=== PATIENT | female | born 1980 | race Caucasian/White ===

== ENCOUNTER → 2021-01-05 07:22 | Outpatient (CLI) | payer OTHER, SELFPAY ==
[2021-01-05 08:03] LABS: Hematocrit 39.9 % (36-46); Hemoglobin 13.3 g/dL (12.0-16.0); Mean Corpuscular HGB Conc 33.3 % (30-36); Mean Corpuscular Volume 93.2 fL (80-100); Platelet Count 384 X10^3/uL (150-400); Red Blood Cell Count 4.28 X10^6/uL (4.0-5.2); Red Cell Distribution Width 12.6 % (11.6-14.8); White Blood Cell Count 7.8 X10^3/uL (4.5-11.0)
[2021-01-05 08:17] LABS: Alanine Aminotransferase 16 IU/L (<35); Albumin 4.3 g/dL (3.5-5.0); Albumin Globulin Ratio 1.5 (1.0-2.8); Alkaline Phosphatase 41 U/L (38-126); Aspartate Aminotransferase 26 IU/L (14-36); BUN Creatinine Ratio 18.4 (6-22); Bilirubin Total 0.4 mg/dL (0.2-1.3); Blood Urea Nitrogen 14 mg/dL (7-17); Calcium 9.2 mg/dL (8.4-10.2); Carbon Dioxide 24 mmol/L (22-32); Chloride 104 mmol/L (98-107); Cholesterol 185 mg/dL (140-199); Estimated Glomerular Filt Rate > 60.0 mL/min (>60); Globulin 2.8 g/dL (1.7-4.1); Glucose 90 mg/dL (70-100); HDL Cholesterol 54 mg/dL (40-60); HEMOLYSIS < 15 (0-50); LDL Cholesterol Calculated 118 mg/dL (<100); Sodium 137 mmol/L (137-145); Total Protein 7.1 g/dL (6.3-8.2); Triglycerides 63 mg/dL (35-150)
[2021-01-05 09:17] LABS: TSH w/ Reflex to FT4 0.83 uIU/mL (0.47-4.68)
== END ==
PROVIDERS: PCP Registered Nurse Diabetes Educator; Referring Provider Registered Nurse Diabetes Educator; Visit Provider Registered Nurse Diabetes Educator
DX: Z00.00 Encounter for general adult medical examination without abnormal findings (principal)
CPT/HCPCS: 36415; 80053; 80061; 84443; 85027

== ENCOUNTER → 2022-02-22 16:41 | Outpatient (CLI) | payer OTHER, SELFPAY ==
[2022-02-22 18:48] LABS: HCG Quantitative /Beta subunit 66433 mIU/mL
== END ==
PROVIDERS: PCP Registered Nurse Diabetes Educator; Referring Provider Registered Nurse Diabetes Educator; Visit Provider Registered Nurse Diabetes Educator
DX: Z32.00 Encounter for pregnancy test, result unknown (principal)
CPT/HCPCS: 36415; 84702

== ENCOUNTER → 2022-03-03 15:37 | Outpatient (CLI) | payer OTHER, SELFPAY ==
--- NOTE | 2022-03-03 15:40 | DI.US.S_ITS ---
PROCEDURE: US OB <= 14 WEEKS FETUS INDICATIONS: DATES OUTSIDE/PRIOR DATING DATA: Last menstrual period (LMP): December 10, 2021. LMP-based estimated date of delivery (ALMA): September 16, 2022. First dating scan (date and location): March 03, 2022. Estimated date of delivery (ALMA) from first dating scan: September 14, 2022 TECHNIQUE: Real-time scanning was performed of the fetus and maternal pelvic organs, with image documentation. Endovaginal scanning was also performed to better visualize the fetus and maternal ovaries. COMPARISON: None. FINDINGS: Embryo: Single living intrauterine gestation is identified measuring approximately 12 weeks and 1 day. No perigestational hemorrhage. Biparietal diameter: 1.4 cm, 12 weeks 0 days Head circumference: 6.0 cm, 12 weeks and 2 days Abdominal circumference: 5.2 cm, 12 weeks and 1 day Heart rate: 163 beats per minute Maternal organs: Ovaries were not visualized. IMPRESSION: Single living intrauterine gestation with estimated sonographic gestational age of approximately 12 weeks and 1 day. Estimated dated delivery is approximately September 14, 2022. This is concordant with estimated dated delivery based off last menstrual period of approximately September 16, 2022. Recommend routine second trimester anatomic screening survey. We strive to produce accurate, complete, and clear reports of imaging services. To assist us in improving patient care, this report was composed using standard report templates and voice recognition software. Therefore, it may contain abnormal punctuation, insertions and/or omissions. Occasional wrong-word or sound-alike substitutions may occur. Though we review the report and make efforts to correct it, we do recommend that the report be read carefully in proper context to recognize any text inaccuracies. Dictated by: eFderico Lemus M.D. on 03/04/2022 at 17:07 Approved by: Federico Lemus M.D. on 03/04/2022 at 17:12
== END ==
PROVIDERS: PCP Registered Nurse Diabetes Educator; Referring Provider Obstetrics & Gynecology; Visit Provider Obstetrics & Gynecology
DX: Z34.01 Encounter for supervision of normal first pregnancy, first trimester (principal); Z3A.12 12 weeks gestation of pregnancy
CPT/HCPCS: 76801; 76817

== ENCOUNTER → 2022-03-09 14:43 | Outpatient (CLI) | payer OTHER, SELFPAY ==
[2022-03-09 14:56] LABS: Miscellaneous to LabCorp NATERA KIT
[2022-03-09 15:29] LABS: Add Manual Diff / Slide Review NO; Basophils Absolute Auto 0 /uL (0-100); Basophils Percent Auto 0.3 % (0-2); Eosinophils Absolute Auto 100 /uL (0-450); Eosinophils Percent Auto 1.1 % (2-4); Hematocrit 37.6 % (36-46); Hemoglobin 12.8 g/dL (12.0-16.0); Lymphocytes Absolute Auto 1500 /uL (1100-4500); Lymphocytes Percent Auto 13.7 % (25-40); Mean Corpuscular HGB Conc 34.2 % (30-36); Mean Corpuscular Hemoglobin 30.9 PG (26-34); Mean Corpuscular Volume 90.5 fL (80-100); Monocytes Absolute Auto 900 /uL (0-900); Neutrophils Absolute Auto 8200 /uL (1500-7000); Neutrophils Percent Auto 76.9 % (50-75); Platelet Count 395 X10^3/uL (150-400); Red Blood Cell Count 4.15 X10^6/uL (4.0-5.2); Red Cell Distribution Width 12.9 % (11.6-14.8); White Blood Cell Count 10.7 X10^3/uL (4.5-11.0)
[2022-03-09 15:57] LABS: Free T4, Direct Thyroxine 1.52 ng/dL (0.78-2.19)
[2022-03-09 16:11] LABS: Thyroid Stimulating Hormone 3.09 uIU/mL (0.47-4.68)
[2022-03-09 19:38] LABS: Appearance Urine UA CLEAR; Bilirubin Urine UA NEGATIVE (NEGATIVE); Color Urine UA YELLOW; Glucose Urine UA NEGATIVE (Negative); Ketones Urine UA NEGATIVE (NEGATIVE); Leukocyte Esterase Urine UA TRACE (NEGATIVE); Nitrite Urine UA NEGATIVE (Negative); Occult Blood Urine UA TRACE-LYSED (Negative); Protein Urine UA NEGATIVE (Negative); Specific Gravity Urine UA 1.015 (1.000-1.035); Urobilinogen Urine UA 0.2 E.U./dL (0.2)
[2022-03-09 19:46] LABS: pH Urine UA 5.5 (4.5-8.0)
[2022-03-09 19:48] LABS: Amorphous Sediment Urine 1+; Bacteria Urine Few (2-10); RBC Urine 0-1/HPF (0-5/HPF); Squamous Epithelial Cell Urine 1-5 /HPF (0-5/HPF); WBC Urine 5-10/HPF (0-5/HPF)
[2022-03-09 21:30] LABS: Culture Indicated Urine Specimen Cultured
[2022-03-10 06:18] LABS: Varicella IgG Antibody 3921 index (Immune >165)
[2022-03-10 07:09] LABS: RPR Screen Non Reactive (Non Reactive)
[2022-03-10 16:16] LABS: Hepatitis B Surface Antigen NEGATIVE s/c (NEGATIVE); Rubella Antibody IgG 64.5 IU/mL (>15)
[2022-03-10 16:27] LABS: HIV 1 & 2 Ab/Ag 4th Gen Combo NEGATIVE (NEGATIVE); Hep C Virus Ab w/Reflex Quant NEGATIVE s/c (NEGATIVE)
== END ==
PROVIDERS: Obstetrics & Gynecology; PCP Registered Nurse Diabetes Educator; Referring Provider Obstetrics & Gynecology; Visit Provider Obstetrics & Gynecology
DX: O09.511 Supervision of elderly primigravida, first trimester (principal)
CPT/HCPCS: 36415; 80055; 81003; 81015; 84439; 84443; 86787; 86803; 86850; 86900; 86901; 87086; 87389; 87491; 87591

== ENCOUNTER 2022-03-24 21:45 | Emergency (ER) | payer OTHER, SELFPAY ==
[2022-03-24 21:54] VITALS: BP 146/81; PULSE 79; RESP 18; TEMP 36.6; O2SAT 98
--- NOTE | 2022-03-24 22:09 | DI.US.S_ITS ---
PROCEDURE: US OB LIMITED INDICATIONS: BLEEDING OUTSIDE/PRIOR DATING DATA: Last menstrual period (LMP): 12/10/2021 LMP-based estimated date of delivery (ALMA): 09/16/2022. First dating scan (date and location): 05/12/2022. Estimated date of delivery (ALMA) from first dating scan: 09/14/2022. The calculations are made using the LMP ALMA of 09/16/2022. TECHNIQUE: Real-time scanning was performed of the fetus, with image documentation and biometric measurements. COMPARISON: None. FINDINGS: General: A single living intrauterine gestation is present. Presentation: There below. Placenta: Placental position is anterior, without previa. Amniotic fluid: Appears subjectively within normal limits. heart rate: 153 beats per minute. Maternal cervical canal: Appears closed. biometrics: Biparietal diameter: 2.6 cm, 14 weeks 4 days Head circumference: 9.7 cm, 14 weeks 3 days Abdominal circumference: 8.1 cm, 15 weeks 3 8 Femur length: 6.2 cm, 13 weeks 5 days IMPRESSION: 1. Single living intrauterine demonstrating appropriate interval growth with estimated weight of 14 weeks 2 days. We strive to produce accurate, complete, and clear reports of imaging services. To assist us in improving patient care, this report was composed using standard report templates and voice recognition software. Therefore, it may contain abnormal punctuation, insertions and/or omissions. Occasional wrong-word or sound-alike substitutions may occur. Though we review the report and make efforts to correct it, we do recommend that the report be read carefully in proper context to recognize any text inaccuracies. Dictated by: Anibal Beavers M.D. on 03/25/2022 at 0:20 Approved by: Anibal Beavers M.D. on 03/25/2022 at 0:26
[2022-03-24 22:39] LABS: Add Manual Diff / Slide Review NO; Basophils Absolute Auto 100 /uL (0-100); Basophils Percent Auto 0.5 % (0-2); Eosinophils Absolute Auto 200 /uL (0-450); Eosinophils Percent Auto 1.5 % (2-4); Hematocrit 35.9 % (36-46); Hemoglobin 12.5 g/dL (12.0-16.0); Lymphocytes Absolute Auto 1800 /uL (1100-4500); Lymphocytes Percent Auto 16.5 % (25-40); Mean Corpuscular Hemoglobin 31.4 PG (26-34); Mean Corpuscular Volume 89.7 fL (80-100); Monocytes Absolute Auto 1200 /uL (0-900); Monocytes Percent Auto 10.8 % (3-14); Neutrophils Absolute Auto 7900 /uL (1500-7000); Neutrophils Percent Auto 70.7 % (50-75); Platelet Count 370 X10^3/uL (150-400); Red Cell Distribution Width 13.3 % (11.6-14.8); White Blood Cell Count 11.1 X10^3/uL (4.5-11.0)
[2022-03-24 22:52] LABS: Alanine Aminotransferase 15 IU/L (<35); Albumin Globulin Ratio 1.3 (1.0-2.8); Alkaline Phosphatase 35 U/L (38-126); Aspartate Aminotransferase 19 IU/L (14-36); BUN Creatinine Ratio 17.2 (6-22); Bilirubin Total 0.3 mg/dL (0.2-1.3); Blood Urea Nitrogen 11 mg/dL (7-17); Calcium 8.4 mg/dL (8.4-10.2); Carbon Dioxide 22 mmol/L (22-32); Chloride 105 mmol/L (98-107); Estimated Glomerular Filt Rate > 60 mL/min (>60); Glucose 98 mg/dL (70-100); HEMOLYSIS < 15 (0-50); Sodium 134 mmol/L (137-145)
[2022-03-24 23:31] LABS: HCG Quantitative /Beta subunit 49774 mIU/mL
[2022-03-25 00:15] LABS: RBC Urine 5-10/HPF (0-5/HPF)
[2022-03-25 00:16] LABS: Bacteria Urine None Seen; Culture Indicated Urine Cult Not Indicated; WBC Urine None Seen (0-5/HPF)
--- NOTE | 2022-03-25 00:39 | ED_ITS ---
HPI - Female Genitourinary General Chief complaint: OB/Uterine Contractions Stated complaint: bleeding, 14 weeks Time Seen by Provider: 03/24/22 22:08 Source: patient Mode of arrival: Ambulatory History of Present Illness HPI Narrative: 42-year-old female nonsmoker without contributing medical history presents with her for evaluation of essentially painless vaginal bleeding. She is a at 14 weeks and managed locally by our OB group. She denies dizziness, weakness or lightheadedness and states that she noticed some blood when she wiped when urinating tonight and states that it was dark. She denies any significant flow but states it has been present over the evening. She may have had some mild left-sided twinges of discomfort but nothing significant. She has no fever or chills and denies any back pain. Related Data Home Medications Medication Instructions Recorded Confirmed prenat.vits,michael,tkm-vfar-zdvor 1 tab PO DAILY 03/07/22 03/09/22 Previous Rx's Medication Instructions Recorded levothyroxine 150 mcg tablet 150 mcg PO DAILY #90 tabs 04/08/21 Allergies Allergy/AdvReac Type Severity Reaction Status Date / Time No Known Drug Allergies Allergy Verified 03/07/22 15:39 Review of Systems Review of Systems Narrative: GENERAL: Denies chills, fatigue, malaise, fever, sweats. HEENT: Denies sinus pain, ear pain, sore throat, difficulty swallowing, dizziness. RESPIRATORY: Denies dyspnea, cough, wheezing, hemoptysis, sputum. CARDIOVASCULAR: Denies chest pain, palpitations, orthopnea, edema, GASTROINTESTINAL: Denies nausea, vomiting, abdominal pain, diarrhea, cons tipation, melena. : See HPI. MUSCULOSKELETAL: denies weakness, joint pain, or bony pain SKIN: Denies rash, skin lesions, or other NEUROLOGIC: Denies weakness, headache, numbness, change in speech, confusion, seizures, incoordination. PSYCHIATRIC: No concerning psychosocial issues. 12 point review of systems is negative except for those stated above Patient History Medical History Acquired hypothyroidism Anxiety PCOS (polycystic ovarian syndrome) Surgical History H/O laparoscopy [place] teeth extracted Family History Grandmother Cancer of kidney Stroke Grandfather Heart disease Heart attack Substance Use Type: does not use Exam Narrative Exam Narrative: GENERAL: [42] year old patient appears stated age. Well-developed patient, in mild distress. HEAD: Atraumatic. Normocephalic. EYES: Pupils equal round and reactive. Extraocular motions intact. No scleral icterus. No injection or drainage. ENT: Nose without bleeding, purulent drainage. Throat without erythema, tonsillar hypertrophy or exudate. Airway patent. NECK: Trachea midline. Non tender CARDIOVASCULAR: Regular rate and rhythm without murmurs, gallops, or rubs. RESPIRATORY: Clear to auscultation. Breath sounds equal bilaterally. No wheezes, rales, or rhonchi. GASTROINTESTINAL: Abdomen soft, non-tender, nondistended. PELVIC: Minimal dark blood via what appears to be and closed os, no obvious abnormalities otherwise EXTREMITIES: No edema or joint tenderness. BACK: Nontender without deformity or crepitance. No flank tenderness. NEURO: AOx3. SKIN: No rash or erythema of visible areas Initial Vital Signs Initial Vital Signs: Vital Signs Temperature 97.9 F 03/24/22 21:54 Pulse Rate 79 03/24/22 21:54 Respiratory Rate 18 03/24/22 21:54 Blood Pressure 146/81 H 03/24/22 21:54 Pulse Oximetry 98 03/24/22 21:54 Oxygen Delivery Method 03/24/22 21:54 Course Orders Ordered: ED Orders 03/24/22 22:09 US OB limited Stat 03/24/22 22:25 Complete Blood Count AUTO DIFF Stat Comprehensive Metabolic Panel Stat HCG Quantitative /Beta subunit Stat Type and Screen Stat 03/25/22 00:00 Urine Microscopic Stat Vital Signs Vital signs: Vital Signs - 8 hr 03/24/22 21:54 03/25/22 02:15 Temperature 97.9 F Pulse Rate 79 78 Respiratory Rate 18 24 Blood Pressure 146/81 H 126/88 Pulse Oximetry 98 98 Oxygen Delivery Method Room Air Room Air MDM - Female Genitourinary Lab Data Result diagrams: 03/24/22 22:25 03/24/22 22:25 Labs: Lab Results 03/24/22 03/24/22 03/24/22 Range/Units 22:25 22:25 22:25 WBC 11.1 H (4.5-11.0) X10^3/uL RBC 4.00 (4.0-5.2) X10^6/uL Hgb 12.5 (12.0-16.0) g/dL Hct 35.9 L (36-46) % MCV 89.7 (80-100) fL MCH 31.4 (26-34) PG MCHC 35.0 (30-36) % RDW 13.3 (11.6-14.8) % Plt Count 370 (150-400) X10^3/uL Neut % (Auto) 70.7 (50-75) % Lymph % (Auto) 16.5 L (25-40) % [place] % (Auto) 10.8 (3-14) % Eos % (Auto) 1.5 L (2-4) % Baso % (Auto) 0.5 (0-2) % Neut # (Auto) 7900 H (4472-8979) /uL Lymph # (Auto) 1800 (2844-6952) /uL [place] # (Auto) 1200 H (0-900) /uL Eos # (Auto) 200 (0-450) /uL Baso # (Auto) 100 (0-100) /uL Sodium 134 L (137-145) mmol/L Potassium 4.0 (3.4-5.1) mmol/L Chloride 105 (98-107) mmol/L Carbon Dioxide 22 (22-32) mmol/L BUN 11 (7-17) mg/dL Creatinine 0.64 (0.52-1.04) mg/dL Estimated GFR > 60 (>60) mL/min BUN/Creatinine Ratio 17.2 (6-22) Glucose 98 (70-100) mg/dL Calcium 8.4 (8.4-10.2) mg/dL Total Bilirubin 0.3 (0.2-1.3) mg/dL AST 19 (14-36) IU/L ALT 15 (<35) IU/L Alkaline Phosphatase 35 L (38-126) U/L Total Protein 7.0 (6.3-8.2) g/dL Albumin 4.0 (3.5-5.0) g/dL Globulin 3.0 (1.7-4.1) g/dL Albumin/Globulin Ratio 1.3 (1.0-2.8) HCG, Quant 48846 mIU/mL Urine RBC (0-5/HPF) Urine WBC (0-5/HPF) Urine Bacteria (None) Ur Culture Indicated? Blood Type A Positive Antibody Screen Negative 03/25/22 Range/Units 00:00 WBC (4.5-11.0) X10^3/uL RBC (4.0-5.2) X10^6/uL Hgb (12.0-16.0) g/dL Hct (36-46) % MCV (80-100) fL MCH (26-34) PG MCHC (30-36) % RDW (11.6-14.8) % Plt Count (150-400) X10^3/uL Neut % (Auto) (50-75) % Lymph % (Auto) (25-40) % [place] % (Auto) (3-14) % Eos % (Auto) (2-4) % Baso % (Auto) (0-2) % Neut # (Auto) (5387-8515) /uL Lymph # (Auto) (8895-4267) /uL [place] # (Auto) (0-900) /uL Eos # (Auto) (0-450) /uL Baso # (Auto) (0-100) /uL Sodium (137-145) mmol/L Potassium (3.4-5.1) mmol/L Chloride (98-107) mmol/L Carbon Dioxide (22-32) mmol/L BUN (7-17) mg/dL Creatinine (0.52-1.04) mg/dL Estimated GFR (>60) mL/min BUN/Creatinine Ratio (6-22) Glucose (70-100) mg/dL Calcium (8.4-10.2) mg/dL Total Bilirubin (0.2-1.3) mg/dL AST (14-36) IU/L ALT (<35) IU/L Alkaline Phosphatase (38-126) U/L Total Protein (6.3-8.2) g/dL Albumin (3.5-5.0) g/dL Globulin (1.7-4.1) g/dL Albumin/Globulin Ratio (1.0-2.8) HCG, Quant mIU/mL Urine RBC 5-10/hpf H (0-5/HPF) Urine WBC None seen (0-5/HPF) Urine Bacteria None seen (None) Ur Culture Indicated? Cult not indicated Blood Type Antibody Screen Urine Dip Bedside Urine Glucose Negative Bedside Urine Bilirubin - Negative Bedside Urine Ketone - Negative Urine Specific [place] 1.015 Bedside Urine Occult Blood +++ Bedside Urine pH 6.5 Bedside Urine Protein - Negative Bedside Urine Urobilinogen - Negative Bedside Urine Nitrite - Negative Bedside Urine Leukocytes - Negative Esterase Discharge Plan Departure Patient Disposition: Home Clinical Impression: Vaginal bleeding affecting early Instructions: DI for Vaginal Bleeding During Activity Restrictions/Additional Instructions: *You have been diagnosed with [vaginal bleeding in . As we discussed your history and physical exam as well as lab work and ultrasound are very reassuring.] *What to do: *Please continue to take your regular medications as directed. [ ] New medication prescriptions sent to your pharmacy: [ ] [ ] New medication written as a paper prescription [ ] No new medications given *Please follow up with your OB provider in 2-3 days, call later this morning for an appointment. Let them know you were seen in the Emergency Department and that we ask that you be seen in follow up. We will electronically transmit a record of today's note * please consider the use of a pad and returned to the emergency department if you saturate a pad in 1 hour or less, or if you develop severe pain, fever or other concerning symptoms * please consider the concept of pelvic rest until seen by OB which includes no vaginal penetration or vigorous activities Prescriptions: No Action levothyroxine 150 mcg tablet 150 mcg PO DAILY Qty: 90 2RF prenat.vits,michael,[id number]-[id number] Tablet 1 tab PO DAILY Referrals: Mary Hawkins MD [Physician] - Ulises Hallman ARNP [Primary Care Provider] - Visit Report Forms: Patient Portal/API
[2022-03-25 02:15] VITALS: BP 126/88; PULSE 78; RESP 24; O2SAT 98
== END 2022-03-25 02:17 | disposition home or self-care (01) ==
PROVIDERS: Emergency Provider Emergency Medicine; PCP Registered Nurse Diabetes Educator
DX: O46.91 Antepartum hemorrhage, unspecified, first trimester (principal); Z3A.14 14 weeks gestation of pregnancy
CPT/HCPCS: 36415; 76815; 80053; 81003; 81015; 84702; 85025; 86850; 86900; 86901; 99281; 99284

== ENCOUNTER → 2022-04-07 15:18 | Outpatient (CLI) | payer OTHER, SELFPAY ==
[2022-04-07 17:41] LABS: TSH w/ Reflex to FT4 2.68 uIU/mL (0.47-4.68)
== END ==
PROVIDERS: PCP Registered Nurse Diabetes Educator; Referring Provider Physician Assistant Medical; Visit Provider Physician Assistant Medical
DX: Z34.02 Encounter for supervision of normal first pregnancy, second trimester (principal); E03.9 Hypothyroidism, unspecified; Z3A.16 16 weeks gestation of pregnancy
CPT/HCPCS: 36415; 82105; 84443

== ENCOUNTER → 2022-04-21 16:38 | Outpatient (CLI) | payer OTHER, SELFPAY ==
[2022-04-23 19:12] LABS: AFP Value 84.3 ng/mL (.); Gest Age on Col Date 18.9 weeks (.); Insulin Dep Diabetes No (.); OSBR Risk 1IN 581 (.); Results Report (.); Test Results *Screen Negative* (.)
== END ==
PROVIDERS: PCP Registered Nurse Diabetes Educator; Referring Provider Obstetrics & Gynecology; Visit Provider Obstetrics & Gynecology
DX: Z34.92 Encounter for supervision of normal pregnancy, unspecified, second trimester (principal)
CPT/HCPCS: 36415; 82105

== ENCOUNTER → 2022-05-03 13:53 | Outpatient (CLI) | payer OTHER, SELFPAY ==
--- NOTE | 2022-05-03 13:54 | DI.US.S_ITS ---
PROCEDURE: US OB >= 14 WEEKS FETUS INDICATIONS: ANATOMY OUTSIDE/PRIOR DATING DATA: Last menstrual period (LMP): 12/10/2021. LMP-based estimated date of delivery (ALMA): 09/16/2022. First dating scan (date and location): 03/03/2022. Estimated date of delivery (ALMA) from first dating scan: 09/14/2022. The calculations are made using the clinical ALMA of 09/16/2022. TECHNIQUE: Real-time scanning was performed of the fetus, with image documentation and biometric measurements. COMPARISON: None. FINDINGS: General: A single living intrauterine gestation is present. Presentation: Breech. Placenta: Placental position is anterior , without previa. Amniotic fluid index: 9.9 cm, normal range is 5-24 cm. Single deepest vertical pocket is 3.6 cm. heart rate: 155 beats per minute. Maternal cervical canal: 3.2 cm long. Normal lower limit is 2.5 cm. biometrics: Biparietal diameter: 4.5 cm 19 weeks 3 days Head circumference: 16.8 cm 19 weeks 3 days Abdominal circumference: 14.9 cm 20 weeks 1 day Femur length: 3.4 cm 20 weeks 4 days Clinically estimated gestational age: 20 weeks 6 days Composite gestational age from present scan: 19 weeks 6 days Estimated weight and percentile: 338 g, 15th percentile Anatomic survey: Neuro: Ventricles are non-dilated at less than 10 mm. Cisterna magna is normal at 3-11 mm. Cerebellum is normal in size and morphology. Nuchal skin fold: Normal at less than 6 mm between 14-21 weeks gestational age. Face: Nose and lips, facial profile are normal. Spine: No evidence for spina bifida. Heart: 4-chambered heart is present, with normal ventricular outflow tracts. Echogenic focus is noted within the left ventricle. Diaphragm: Diaphragm is intact. Stomach: Left-sided stomach is present. Kidneys: No hydronephrosis. Normal is less than 5 mm in 2nd trimester, less than 7 mm in 3rd trimester. Cord: 3-vessel cord has orthotopic insertion. Bladder: Normal in size. Extremities: All 4 extremities identified. IMPRESSION: Single live intrauterine with ultrasound gestational age today of 19 weeks 6 days. Echogenic focus is noted within the left ventricle overall nonspecific. However, recommend interval follow-up as well as correlation to genetic markers. We strive to produce accurate, complete, and clear reports of imaging services. To assist us in improving patient care, this report was composed using standard report templates and voice recognition software. Therefore, it may contain abnormal punctuation, insertions and/or omissions. Occasional wrong-word or sound-alike substitutions may occur. Though we review the report and make efforts to correct it, we do recommend that the report be read carefully in proper context to recognize any text inaccuracies. Dictated by: Zeenat Orta M.D. on 05/09/2022 at 17:04 Approved by: Zeenat Orta M.D. on 05/09/2022 at 17:06
== END ==
PROVIDERS: PCP Registered Nurse Diabetes Educator; Referring Provider Obstetrics & Gynecology; Visit Provider Obstetrics & Gynecology
DX: Z34.02 Encounter for supervision of normal first pregnancy, second trimester (principal); Z3A.19 19 weeks gestation of pregnancy
CPT/HCPCS: 76811

== ENCOUNTER → 2022-06-10 10:30 | Outpatient (CLI) | payer OTHER, SELFPAY ==
--- NOTE | 2022-06-10 10:33 | DI.US.S_ITS ---
PROCEDURE: US OB LIMITED INDICATIONS: EFW; [place] OUTSIDE/PRIOR DATING DATA: Last menstrual period (LMP): 12/10/2021. LMP-based estimated date of delivery (ALMA): 09/16/2022. First dating scan (date and location): 03/03/2022. Estimated date of delivery (ALMA) from first dating scan: 09/14/2022. TECHNIQUE: Real-time scanning was performed of the fetus, with image documentation and biometric measurements. Endovaginal scanning: No COMPARISON: [facility], OB LIMITED, 03/24/2022, 23:06. [facility], OB >= 14 WEEKS FETUS, 05/03/2022, 13:57. FINDINGS: General: A single living intrauterine gestation is present. Presentation: Transverse with head to maternal right. Placenta: Placental position is anterior fundal , without previa. Amniotic fluid index: 11.8 cm, which is at the 20th percentile for gestational age Single deepest vertical pocket is 3.9 cm. heart rate: 158 beats per minute. Maternal cervical canal: 4.3 cm long. Normal lower limit is 2.5 cm. biometrics: Biparietal diameter: 62 mm; 25 weeks 1 day Head circumference: 227 mm; 24 weeks 5 days Abdominal circumference: 206 mm; 25 weeks 1 day Femur length: 45 mm; 24 weeks 6 days Clinically estimated gestational age: 26 weeks 0 days Composite gestational age from present scan: 25 weeks 0 days Estimated weight and percentile: 761 g, which is at the 10th percentile for gestational age Other: Not applicable. IMPRESSION: 1. Single living intrauterine gestation. 2. Estimated weight is at the 10th percentile for gestational age. 3. Amniotic fluid index is at the 20th percentile for gestational age, consistent with oligohydramnios. We strive to produce accurate, complete, and clear reports of imaging services. To assist us in improving patient care, this report was composed using standard report templates and voice recognition software. Therefore, it may contain abnormal punctuation, insertions and/or omissions. Occasional wrong-word or sound-alike substitutions may occur. Though we review the report and make efforts to correct it, we do recommend that the report be read carefully in proper context to recognize any text inaccuracies. Dictated by: Negar Whitfield M.D. on 06/10/2022 at 14:00 Transcribed by: ROBERT on 06/10/2022 at 14:04 Approved by: Negar Whitfield M.D. on 06/10/2022 at 16:58
[2022-06-10 13:39] LABS: Hematocrit 32.6 % (36-46); Hemoglobin 11.4 g/dL (12.0-16.0)
[2022-06-10 14:13] LABS: GTT (PREG) 1 Hour PP 50gm Dose 124 mg/dL (76-139)
[2022-06-10 14:39] LABS: TSH w/ Reflex to FT4 2.73 uIU/mL (0.47-4.68)
== END ==
PROVIDERS: PCP Registered Nurse Diabetes Educator; Referring Provider Obstetrics & Gynecology; Visit Provider Obstetrics & Gynecology
DX: O09.512 Supervision of elderly primigravida, second trimester (principal); O99.282 Endocrine, nutritional and metabolic diseases complicating pregnancy, second trimester; E03.9 Hypothyroidism, unspecified; Z3A.25 25 weeks gestation of pregnancy
CPT/HCPCS: 76815; 82950; 84443; 85014; 85018

== ENCOUNTER 2022-07-28 16:19 | Outpatient (CLI) | payer OTHER, SELFPAY | END 2022-07-28 17:10 | disposition home or self-care (01) | LOC: LABOR 16:26 → OB 08-04 13:37 | PROVIDERS: PCP Registered Nurse Diabetes Educator; Referring Provider Obstetrics & Gynecology; Visit Provider Obstetrics & Gynecology | DX: O36.5930 Maternal care for other known or suspected poor fetal growth, third trimester, not applicable or unspecified (principal); O09.513 Supervision of elderly primigravida, third trimester; Z3A.32 32 weeks gestation of pregnancy | CPT/HCPCS: 59025; G0378; G0379 ==

== ENCOUNTER 2022-07-31 14:56 | Outpatient (CLI) | payer OTHER, SELFPAY | END 2022-07-31 16:30 | disposition home or self-care (01) | LOC: LABOR 15:41 → OB 08-04 13:46 | PROVIDERS: PCP Registered Nurse Diabetes Educator; Referring Provider Obstetrics & Gynecology; Visit Provider Obstetrics & Gynecology | DX: O36.5930 Maternal care for other known or suspected poor fetal growth, third trimester, not applicable or unspecified (principal); O09.513 Supervision of elderly primigravida, third trimester; Z3A.33 33 weeks gestation of pregnancy | CPT/HCPCS: 59025; G0378; G0379 ==

== ENCOUNTER 2022-08-08 16:04 | Outpatient (CLI) | payer OTHER, SELFPAY ==
--- NOTE | 2022-08-08 16:59 | PM.PROC.1 ---
Procedures Date/Time Date of procedure: 08/08/22 Time of procedure: 16:40 General Procedure description: NST: baseline FHR- 145bpm moderate variability accels present decels absent Reactive NST Continue bi-weekly testing as previously scheduled.
== END 2022-08-08 16:47 | disposition home or self-care (01) ==
LOC: OB 08-10 06:58
PROVIDERS: PCP Registered Nurse Diabetes Educator; Referring Provider Obstetrics & Gynecology; Visit Provider Obstetrics & Gynecology
DX: O36.5930 Maternal care for other known or suspected poor fetal growth, third trimester, not applicable or unspecified (principal); O09.513 Supervision of elderly primigravida, third trimester; Z3A.34 34 weeks gestation of pregnancy
CPT/HCPCS: 59025; G0378; G0379

== ENCOUNTER → 2022-08-12 16:28 | Outpatient (CLI) | payer OTHER, SELFPAY ==
[2022-08-13 12:55] LABS: Strep Grp B PCR NEG for Grp B Strep
== END ==
PROVIDERS: PCP Registered Nurse Diabetes Educator; Visit Provider Obstetrics & Gynecology
DX: Z34.03 Encounter for supervision of normal first pregnancy, third trimester (principal); Z3A.35 35 weeks gestation of pregnancy
CPT/HCPCS: 87653

== ENCOUNTER 2022-08-18 13:13 | Outpatient (CLI) | payer OTHER, SELFPAY | END 2022-08-18 14:50 | disposition home or self-care (01) | LOC: LABOR 14:03 → OB 08-22 08:21 | PROVIDERS: PCP Registered Nurse Diabetes Educator; Referring Provider Obstetrics & Gynecology; Visit Provider Obstetrics & Gynecology | DX: O09.513 Supervision of elderly primigravida, third trimester (principal); O36.5930 Maternal care for other known or suspected poor fetal growth, third trimester, not applicable or unspecified; Z3A.35 35 weeks gestation of pregnancy | CPT/HCPCS: 59025; G0378; G0379 ==

== ENCOUNTER 2022-08-21 13:34 | Outpatient (CLI) | payer OTHER, SELFPAY ==
--- NOTE | 2022-08-21 15:34 | P.TNLD_ITS ---
Visit Information Visit Information Date of evaluation: 08/21/22 Primary OB Provider: Itz Salmeron On-call OB Provider: Del Rdz Reason for Evaluation: Yes non-stress test Comments/Additional reasons for admission: Patient getting biweekly NSTs due to growth retardation PFSH Medical History Acquired hypothyroidism Anxiety PCOS (polycystic ovarian syndrome) Surgical History H/O laparoscopy [place] teeth extracted Family History Grandmother Cancer of kidney Stroke Grandfather Heart disease Heart attack Social History marital status: number of children: 0 household members: spouse lives independently: Yes housing: [facility] ([facility]) pets and animals: Yes (2 dogs) education level: college ([employer] degree) occupational status: employed 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) special paxton needs: No travel history: recent (domestic only) seatbelt use: always helmet use: Yes water heater temp set < 120 deg: Yes working smoke detector in home: Yes fire extinguisher in home: Yes carbon monox detector in home: Yes firearms in home: Yes (currently disassembled, will get a safe soon) do you feel safe at home: Yes Smoking Status: Never smoker second hand exposure: No alcohol intake: former (rarely prior to learning of ) substance use type: does not use during the past year weight has: remained stable well-balanced diet: about half the time daily servings fruits/ve-4 caffeine: No Type(s) of exercise: regular exercise frequency: 3-4 times per week Evaluation Evaluation Baseline heart rate: 150 Variability: Moderate (11-25) monitor accelerations: Present Monitor Decelerations: Absent Contraction Frequency (minutes): 0 Category of Tracing: Reactive Status: Category l
== END 2022-08-21 14:45 | disposition home or self-care (01) ==
LOC: OB 08-25 13:07
PROVIDERS: PCP Registered Nurse Diabetes Educator; Referring Provider Obstetrics & Gynecology; Visit Provider Obstetrics & Gynecology
DX: O36.5930 Maternal care for other known or suspected poor fetal growth, third trimester, not applicable or unspecified (principal); Z3A.36 36 weeks gestation of pregnancy
CPT/HCPCS: 59025; G0378; G0379

== ENCOUNTER 2022-08-26 07:27 | Inpatient (IN) | payer OTHER, SELFPAY ==
--- NOTE | 2022-08-26 12:34 | P.HPOB_ITS ---
OB HPI Date/Time Date of admission: 08/26/22 Date Patient Seen: 08/26/22 Time Patient Seen: 12:34 History of Present Condition Chief complaint: Induction for advanced maternal age and SGA at 37 : 1 Para: 0 Estimated Date of Delivery: 09/16/22 Estimated Gestational Age (weeks): 37 Narrative: Lisa Butt is a 42 year old female admitted for induction for SGA infant Indications Indication for induction OB: intra-uterine growth restriction History of Present care: good care Dating criteria: LMP confirmed by 1st trimester US Ultrasounds: normal mid trimester US Abnormal ultrasound findings: Isolated Intracardiac focus Obstetrical complications: growth restriction Medical complications: none Preadmission Labs Blood type: A (+) positive -: Antibody screen: negative, GBS status: negative, HBsAG: negative, HIV: negative and RPR/VDLR: negative -: Chlamydia screen: not detected and Gonorrhea screen: not detected -: Rubella: immune and Varicella: immune HCAB: negative Cell-free DNA: Normal 1 hr GTT: 124 Evaluation Evaluation Baseline heart rate: 140 Variability: Moderate (11-25) monitor accelerations: Present Monitor Decelerations: Absent Contraction Frequency (minutes): 0 Category of Tracing: Reactive Status: Category l PFSH Medical History Acquired hypothyroidism Anxiety PCOS (polycystic ovarian syndrome) Surgical History H/O laparoscopy [place] teeth extracted Family History Grandmother Cancer of kidney Stroke Grandfather Heart disease Heart attack Social History marital status: number of children: 0 household members: spouse lives independently: Yes housing: condominium (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 needs: No travel history: recent (domestic only) seatbelt use: always helmet use: Yes water heater temp set < 120 deg: Yes working smoke detector in home: Yes fire extinguisher in home: Yes carbon monox detector in home: Yes firearms in home: Yes (currently disassembled, will get a safe soon) do you feel safe at home: Yes Smoking Status: Never smoker second hand exposure: No alcohol intake: former (rarely prior to learning of ) substance use type: does not use during the past year weight has: remained stable well-balanced diet: about half the time daily servings fruits/ve-4 caffeine: No Type(s) of exercise: regular exercise frequency: 3-4 times per week Meds Home Medications and Allergies Home Medications Medication Instructions Recorded Confirmed Type prenat.vits,michael,[id number]-ydya-ftshf 1 tab PO DAILY 03/07/22 08/12/22 History levothyroxine 150 mcg tablet 150 mcg PO DAILY #90 tabs 06/10/22 08/12/22 Rx aspirin 81 mg tablet,delayed 81 mg PO DAILY 08/12/22 08/12/22 History release (Adult Aspirin Regimen) ferrous sulfate 324 mg (65 mg 324 mg PO Q OTHER DAY 08/12/22 08/12/22 History iron) tablet,delayed release Allergies Allergy/AdvReac Type Severity Reaction Status Date / Time No Known Drug Allergies Allergy Verified 08/12/22 15:07 Review of Systems Review of Systems Narrative: Patient denies headaches, scotomata, epigastric pain. Good movement. No leakage of fluid. No regular contractions. No vaginal bleeding or unusual discharge OB Exam Vital signs Blood Pressure: 131/62 Pulse Rate: 85 Temperature: 36.6 F Narrative Exam Narrative: HEENT exam within normal limits. Lungs are clear to auscultation percussion. Heart is regular rate and rhythm no S3-S4 or murmurs. Abdomen is gravid. Fetus is vertex. Extremities without edema and nontender. Assessment and Plan Assessment and Plan Assessment and Plan narrative: 37 week gestation advanced maternal age with SGA here for cervical ripening and induction.
[2022-08-26 12:41] VITALS: BP 131/62; PULSE 85; TEMP 2.6; TEMP 36.6
[2022-08-26 12:49] VITALS: BP 131/62
[2022-08-26 14:15] LABS: Add Manual Diff / Slide Review NO; Basophils Absolute Auto 0 /uL (0-100); Basophils Percent Auto 0.5 % (0-2); Eosinophils Absolute Auto 100 /uL (0-450); Eosinophils Percent Auto 1.1 % (2-4); Hemoglobin 11.8 g/dL (12.0-16.0); Lymphocytes Absolute Auto 1100 /uL (1100-4500); Lymphocytes Percent Auto 10.1 % (25-40); Mean Corpuscular HGB Conc 34.7 % (30-36); Mean Corpuscular Hemoglobin 31.9 PG (26-34); Mean Corpuscular Volume 91.9 fL (80-100); Monocytes Absolute Auto 1000 /uL (0-900); Monocytes Percent Auto 9.3 % (3-14); Neutrophils Absolute Auto 8300 /uL (1500-7000); Platelet Count 318 X10^3/uL (150-400); Red Cell Distribution Width 13.3 % (11.6-14.8); White Blood Cell Count 10.5 X10^3/uL (4.5-11.0)
[2022-08-26] MEDS: DINOPROSTONE VAG (CERVIDIL) 10 MG VAG (14:17)
[2022-08-26] MEDS: ZOLPIDEM 5 MG TABLET PO (20:03)
[2022-08-27] MEDS: LEVOTHYROXINE 150 MCG TABLET PO (06:03)
[2022-08-27] MEDS: miSOPROStoL 25 MCG TABLET 50 MCG PO ×3 (08:58→17:00)
--- NOTE | 2022-08-27 11:24 | PM.OBPNLAB ---
Date/Time Date Patient Seen: 08/27/22 Time Patient Seen: 09:00 Pain Control Pain control: tolerating well Pelvic Exam Dilation (cm): 0 Effacement (%): 40 station: -2 Amniotic membrane status: Intact Contractions Contractions on admission: none Monitor mode: External Status status: Category l Heart Rate Baseline: 140 Monitor Accelerations: Present Monitor Decelerations: Absent Monitor Variability: Moderate Assessment and Plan Assessment: induction ongoing Plan: other Comments: Cervidil had been removed without onset of labor. Will switch to oral Cytotec.
[2022-08-27] MEDS: LACTATED RINGERS 1,000 ML 100 ML IV (18:37)
[2022-08-27] MEDS: FENT 2MCG/ML BUPIV 0.125% EPI 200 MCG/100 ML PLAST..BAG 10 MCG EPIDURAL (19:45)
[2022-08-27] MEDS: ONDANSETRON 4 MG/2 ML INJ IV (20:45)
--- NOTE | 2022-08-27 21:21 | PM.OBPNLAB ---
Date/Time Date Patient Seen: 08/27/22 Time Patient Seen: 21:21 Pain Control Pain control: epidural Pelvic Exam Dilation (cm): 3 Effacement (%): 90 station: -2 Amniotic membrane status: Ruptured Contractions Contractions on admission: regular Monitor mode: External Contraction pattern: Regular Contraction intensity: Moderate Status status: Category l Heart Rate Baseline: 120 Monitor Accelerations: Present Monitor Decelerations: Absent Monitor Variability: Moderate Assessment and Plan Assessment: induction ongoing Plan: begin patient augmentation
[2022-08-27] MEDS: OXYTOCIN PREMIX 30 UNIT/500 ML PLAST..BAG IV (21:28)
--- NOTE | 2022-08-27 22:57 | PM.OBPRVD ---
Events: Labor Induction (SGA and advanced maternal age) Labor & Delivery Delivery date: 08/27/22 Intrapartal Events: None Cervical ripening method: per Cervidil protocol (Followed by misoprostol oral) Delivery monitor: external FHT and external uterine Route of delivery: L&D Laceration Description: None Estimated blood loss (mL): 100 Anesthesia Type: Epidural Narrative: Patient was brought to the hospital for induction for SGA and advanced maternal age at 37 weeks. She received Cervidil with no significant change in her cervix so she was started on oral Cytotec. After the 3rd dose of Cytotec the patient had significant increasing contraction pains and received an epidural catheter for pain control. heart tones category 1 to category 2 throughout labor. The patient progressed rapidly to complete dilation. With 20 minutes of pushing she had some variable decelerations. A viable female was delivered over an intact perineum spontaneously. There was a tight nuchal cord that was released. The infant was placed on maternal abdomen and after the cord stopped pulsating the cord was clamped, cut, and cord bloods obtained. The placenta delivered spontaneously, intact, with 3 vessels. There were no cervical, vaginal, or perineal tears. Patient with rupture membranes for total of 4 hours and 40 minutes. 1st stage of labor 4 hours and 12 minutes. 2nd stage of labor 18 minutes. 3rd stage of labor 15 minutes. Baby 1: Infant gender: Female Presentation: vertex Position: Right Occiput Anterior Placenta delivery description: Spontaneous Cord Vessel Description: 3 Vessels and Nuchal Cord score (1 min): 9 score (5 min): 9 weight: 5 lb 1.624 oz Plan for aftercare: Routine care
[2022-08-28] MEDS: IBUPROFEN 600 MG TABLET PO ×4 (02:35→22:13)
[2022-08-28 07:21] LABS: Add Manual Diff / Slide Review NO; Basophils Absolute Auto 100 /uL (0-100); Basophils Percent Auto 0.6 % (0-2); Eosinophils Absolute Auto 100 /uL (0-450); Eosinophils Percent Auto 0.4 % (2-4); Hematocrit 33.4 % (36-46); Hemoglobin 11.5 g/dL (12.0-16.0); Lymphocytes Absolute Auto 1200 /uL (1100-4500); Lymphocytes Percent Auto 7.9 % (25-40); Mean Corpuscular HGB Conc 34.3 % (30-36); Mean Corpuscular Hemoglobin 31.4 PG (26-34); Mean Corpuscular Volume 91.3 fL (80-100); Monocytes Absolute Auto 1300 /uL (0-900); Monocytes Percent Auto 8.4 % (3-14); Neutrophils Absolute Auto 12400 /uL (1500-7000); Neutrophils Percent Auto 82.7 % (50-75); Platelet Count 309 X10^3/uL (150-400); Red Blood Cell Count 3.66 X10^6/uL (4.0-5.2); Red Cell Distribution Width 13.5 % (11.6-14.8)
[2022-08-28] MEDS: LEVOTHYROXINE 150 MCG TABLET PO (08:02)
[2022-08-28] MEDS: LANOLIN OINT 7 GM 1 APPLIC TOP (09:11)
[2022-08-28] MEDS: DERMOPLAST SPRAY 20% 60 ML 1 SPRAY TOP (09:12)
[2022-08-28] MEDS: ACETAMINOPHEN 325 MG TABLET 650 MG PO ×3 (09:12→22:12)
[2022-08-28] MEDS: PRENATAL VIT,CALC/IRON/FOLIC 1 TABLET 1 TAB PO (09:12)
--- NOTE | 2022-08-28 11:13 | PM.OBPN.1 ---
Subjective - OB Subjective Patient comments: no complaints, pain well controlled and tolerating diet baby status: doing well feeding status: exclusively breast feeding Narrative: 12 hours doing well. Date Patient Seen: 08/28/22 Time Patient Seen: 11:13 Exam Vital Signs (past 8 hours): Blood pressure 119/60, pulse of 82, temperature 98.5? Narrative Exam Narrative: Abdomen is soft, nontender. Uterus is firm, U-1, nontender. Mild lochia. A perineum is intact. Extremities with trace edema and nontender. Objective Labs 08/28/22 07:10 Labs: Laboratory Results - last 24 hr 08/28/22 07:10 WBC 15.0 H RBC 3.66 L Hgb 11.5 L Hct 33.4 L MCV 91.3 MCH 31.4 MCHC 34.3 RDW 13.5 Plt Count 309 Neut % (Auto) 82.7 H Lymph % (Auto) 7.9 L [place] % (Auto) 8.4 Eos % (Auto) 0.4 L Baso % (Auto) 0.6 Neut # (Auto) 86955 H Lymph # (Auto) 1200 [place] # (Auto) 1300 H Eos # (Auto) 100 Baso # (Auto) 100 Assessment & Plan Plan day: 1 plan OB: routine care Time Spent With Patient Time: Total time spent is greater than 50% in coordination of care (as documented) at patient's floor/unit and/or counseling patient: Time with patient: less than 15 minutes
[2022-08-29] MEDS: IBUPROFEN 600 MG TABLET PO (04:18)
[2022-08-29] MEDS: ACETAMINOPHEN 325 MG TABLET 650 MG PO (04:18)
--- NOTE | 2022-08-29 08:17 | PM.OBDS.1 ---
Discharge Providers Provider Date of admission: 08/26/22 12:33 Discharge Date: 08/29/22 Primary care physician: MATTHEW Wallace Consults: 08/28/22 22:55 Consult to Disabilities Services Officer Routine Comment: Discharge provider: Andie Ward MD Summary Hospital Course Date Patient Seen: 08/29/22 Time Patient Seen: 08:17 Diagnoses: 37 week gestation with SGA admitted for induction Hospital Course: Patient was admitted for induction with Cervidil on the . She had no change in her cervix after 12 hours so she was switched to Cytotec oral. Patient then had rupture membranes and onset of labor. Patient received an epidural catheter for pain control. Patient progressed to complete and pushing. And delivered spontaneously. Patient is doing well other than some issues with . She is urinating and ambulating well. Mild lochia. Peripartum Data Delivery Method: Natural Vaginal Laceration Description: None Procedures: Cervidil and Cytotec induction, epidural catheter, spontaneous vaginal delivery complications: none [place] 1: Gender: Female Disposition of : home Discharge Diagnosis (1) Vaginal delivery: Status: Acute (2) Advanced maternal age (AMA), 40 years or greater: Status: Acute (3) IUGR, : Status: Acute Status at Discharge Cognitive/behavioral status at discharge: oriented Functional status at discharge: independent ambulation Overall status at discharge: patient is progressing back to baseline Time Spent with Patient Time attestation: Total time spent providing and/or coordinating discharge services: Time spent: Less than 30 minutes Objective Labs 08/28/22 07:10 Exam Vital Signs (past 8 hours): Blood pressure 120/73, pulse 72, temperature 98.5? Narrative Exam Narrative: Abdomen is soft, nontender. Uterus is firm, U-2, nontender. Mild lochia. Extremities with trace edema and nontender. Discharge Plan Discharge Plan Patient Disposition: Home Discharge orders & Medications Prescriptions: Continued levothyroxine 150 mcg tablet 150 mcg PO DAILY Qty: 90 2RF ferrous sulfate 324 mg (65 mg iron) tablet,delayed release (DR/EC) 324 mg PO Q OTHER DAY prenat.vits,michael,okj-[id number] Tablet 1 tab PO DAILY Discontinued aspirin [Adult Aspirin Regimen] 81 mg tablet,delayed release (DR/EC) 81 mg PO DAILY Follow up/Referrals: Ulises Hallman ARNP [Primary Care Provider] - Itz Salmeron MD [Physician] - 6 Weeks Diet/Activity/Treatments Diet: Regular Activity: Nothing in vagina for 6 weeks Skin/Wound/Dressing Care Report to your healthcare provider any signs of infection, such as:: chills, fever and increased pain Discharge Data Primary Care Provider: Ulises Hallman
[2022-08-29] MEDS: PRENATAL VIT,CALC/IRON/FOLIC 1 TABLET 1 TAB PO (09:08)
[2022-08-29] MEDS: LEVOTHYROXINE 150 MCG TABLET PO (09:08)
[2022-08-29 11:18] VITALS: BP 136/80; PULSE 78; RESP 16; TEMP 36.7
== END 2022-08-29 11:07 | disposition home or self-care (01) | DRG 807 ==
PROVIDERS: Admitting Provider Specialist; PCP Registered Nurse Diabetes Educator; Referring Provider Specialist; Visit Provider Specialist
DX: O36.5930 Maternal care for other known or suspected poor fetal growth, third trimester, not applicable or unspecified (principal); Z37.0 Single live birth; Z3A.37 37 weeks gestation of pregnancy; O76 Abnormality in fetal heart rate and rhythm complicating labor and delivery
CPT/HCPCS: 36415; 59050; 59200; 59400; 85025; 86850; 86900; 86901; G0378; G0379; J2405; J2590

== ENCOUNTER → 2022-12-12 11:30 | Outpatient (CLI) | payer OTHER, SELFPAY ==
[2022-12-12 13:48] LABS: TSH w/ Reflex to FT4 3.71 uIU/mL (0.47-4.68)
== END ==
PROVIDERS: PCP Registered Nurse Diabetes Educator; Referring Provider Registered Nurse Diabetes Educator; Visit Provider Registered Nurse Diabetes Educator
DX: E03.9 Hypothyroidism, unspecified (principal)
CPT/HCPCS: 36415; 84443